=== PATIENT | female | born 1945 | race Caucasian/White ===

== ENCOUNTER 2018-09-24 07:20 | Emergency (ER) | payer MEDICARE, OTHER ==
[~2018-09-24] VITALS: Ht 162.6 cm; Wt 84.8 kg
[2018-09-24] MEDS ORDERED: LISI5 PO (07:37)
[2018-09-24] MEDS ORDERED: OMEPRAZOLE MAGN20 MG PO (07:38)
[2018-09-24] MEDS ORDERED: LEVSOD100 PO (07:38)
[2018-09-24 08:34] LABS: BASOPHILS ABSOLUTE AUTO 0.02 K/mm3 (0.00-0.23); BASOPHILS PERCENT AUTO 0 % (0-2); EOSINOPHILS ABSOLUTE AUTO 0.05 K/mm3 (0.00-0.68); EOSINOPHILS PERCENT AUTO 1 % (0-6); Hematocrit 38.7 % (33.0-51.0); Hemoglobin 12.4 g/dL (11.5-16.0); IMMATURE GRAN ABSOLUTE AUTO 0.03 K/mm3 (0.00-0.10); IMMATURE GRAN PERCENT AUTO 0 % (0-1); LYMPHOCYTES ABSOLUTE AUTO 1.57 K/mm3 (0.84-5.20); LYMPHOCYTES PERCENT AUTO 16 % (21-46); MONOCYTES ABSOLUTE AUTO 0.77 K/mm3 (0.16-1.47); MONOCYTES PERCENT AUTO 8 % (4-13); Mean Corpuscular HGB 29.7 pg (26.0-34.0); Mean Corpuscular Volume 93 fL (80-100); Mean Platelet Volume 10.3 fL (9.1-12.4); NEUTROPHILS ABSOLUTE AUTO 7.69 K/mm3 (1.96-9.15); NEUTROPHILS PERCENT AUTO 76 % (41-73); Platelet Count 206 K/mm3 (150-400); RDW Coefficient Variation 12.7 % (11.7-14.2); RDW Standard Deviation 43.8 fL (35.1-46.3); Red Blood Cell Count 4.17 M/mm3 (3.80-5.20); White Blood Cell Count 10.13 K/mm3 (4.00-11.30)
[2018-09-24 08:52] LABS: Alanine Aminotransfer (ALT/SGP 26 U/L (12-78); Albumin, Blood 3.6 g/dL (3.4-5.0); Alk Phos 122 U/L (50-136); Anion Gap 5 mmol/L (6-16); Aspartate Aminotrans (AST/SGOT 15 U/L (12-37); Bilirubin, Total 0.6 mg/dL (0.1-1.0); Blood Urea Nitrogen 13 mg/dL (8-24); Bun/Creatinine Ratio 17.1 (12.0-20.0); CO2, Blood 27 mmol/L (21-32); Calcium, Blood 8.6 mg/dL (8.5-10.1); Chloride, Blood 108 mmol/L (98-108); Creatinine, Blood 0.76 mg/dL (0.40-1.00); Globulin, Blood 3.6 g/dL (2.2-4.0); Glomerular Filtration Rate >60 (60-); Glucose, Blood 101 mg/dL (70-99); Potassium, Blood 3.9 mmol/L (3.5-5.5); Sodium, Blood 140 mmol/L (136-145); Total Protein, Blood 7.2 g/dL (6.4-8.2)
[2018-09-24 11:37] LABS: Source, Urine Clean Catch
[2018-09-24 11:54] LABS: Bilirubin, Urine Neg (Neg); Blood, Urine Neg (Neg); Glucose Qualitative, Urine Neg (Neg); Ketones, Urine Neg (Neg); Leukocyte Esterase, Urine Neg (Neg); Nitrite, Urine Neg (Neg); Protein, Urine 1+ (Neg); Specific Gravity, Urine 1.005 (1.003-1.022); Urobilinogen, Urine NORM (Normal)
[2018-09-24 11:59] LABS: Appearance, Urine Clear (Clear); Color, Urine Yellow (P-Yellow)
== END 2018-09-24 12:43 | disposition home or self-care (01) ==
LOC: ER 07:20
PROVIDERS: Physician Assistant
DX: K57.32 Diverticulitis of large intestine without perforation or abscess without bleeding (principal); Z90.710 Acquired absence of both cervix and uterus; Z90.49 Acquired absence of other specified parts of digestive tract; Z79.899 Other long term (current) drug therapy
CPT/HCPCS: 36415; 74177; 80053; 83690; 85025; 96361; 96365; 96375; 99284-25; J1170; J2405; J2543; J2550; J7030; Q9967

== ENCOUNTER 2019-03-27 15:52 | Observation (INO) | payer MEDICARE, OTHER ==
[~2019-03-27] VITALS: Ht 172.7 cm; Wt 70.3 kg
[~2019-03-27 15:52] MED LIST: LEVSOD100 PO; OMEPRAZOLE MAGN20 MG PO; Prinivil10 MG PO
[2019-03-27 16:58] LABS: BASOPHILS ABSOLUTE AUTO 0.03 K/mm3 (0.00-0.23); BASOPHILS PERCENT AUTO 0 % (0-2); EOSINOPHILS ABSOLUTE AUTO 0.02 K/mm3 (0.00-0.68); EOSINOPHILS PERCENT AUTO 0 % (0-6); Hematocrit 38.6 % (33.0-51.0); Hemoglobin 12.2 g/dL (11.5-16.0); IMMATURE GRAN PERCENT AUTO 1 % (0-1); LYMPHOCYTES PERCENT AUTO 11 % (21-46); MONOCYTES ABSOLUTE AUTO 0.67 K/mm3 (0.16-1.47); MONOCYTES PERCENT AUTO 5 % (4-13); Mean Corpuscular HGB 29.1 pg (26.0-34.0); Mean Corpuscular HGB Conc 31.6 g/dL (31.5-36.5); Mean Corpuscular Volume 92 fL (80-100); Mean Platelet Volume 10.7 fL (9.1-12.4); NEUTROPHILS ABSOLUTE AUTO 11.11 K/mm3 (1.96-9.15); NEUTROPHILS PERCENT AUTO 83 % (41-73); Platelet Count 207 K/mm3 (150-400); RDW Coefficient Variation 13.3 % (11.7-14.2); Red Blood Cell Count 4.19 M/mm3 (3.80-5.20); White Blood Cell Count 13.33 K/mm3 (4.00-11.30)
[2019-03-27 17:17] LABS: Albumin/Globulin Ratio 1.3 (0.8-1.8); Bilirubin, Total 0.5 mg/dL (0.1-1.0); Bun/Creatinine Ratio 21.6 (12.0-20.0); Calcium, Blood 8.9 mg/dL (8.5-10.1); Creatinine, Blood 1.02 mg/dL (0.40-1.00); Potassium, Blood 4.1 mmol/L (3.5-5.5)
[2019-03-27 17:22] LABS: International Normalized Ratio 0.95; Prothrombin Time Results 10.1 Sec (9.7-11.5)
--- NOTE | 2019-03-28 07:26 | NUR ---
SUMMARY PT REMAINS A&O X4, RESPIRATIONS REMAIN SHALLOW & GAURDED. I/S EDUCATION PROVIDED, PT DEMONSTRATED USE. SHE IS VERY PAINFUL WITH USE AND IS HESITANT. O2 SATURATION REMAINS ABOVE 95% ON ROOM AIR. PT TO XRAY THIS AM. PAIN MEDICATED PRN PER EMAR. PT ENCOURAGED TO DISCUSS PAIN COVERAGE WITH THIS AM. REPORT GIVEN TO DAY RN. CALL LIGHT IN REACH
--- NOTE | 2019-03-28 16:39 | NUR ---
PT BACK FROM CT GUIDED PIGTAIL CHEST TUBE PLACEMENT, TOLERATED WELL, DENIES ANY SHORTNESS OF BREATH, C/O PAIN ON RIBS, L SHOULDER MEDICATED W/ 1 NORCO AND ZOFRAN FOR NAUSEA, PIGTAIL DRAIN INTACT, CONT. TO MONITOR FOR ANY CHANGES.
--- NOTE | 2019-03-28 18:44 | NUR ---
SUMMARY REPORTS PAIN IS "OK" AT THIS TIME, DENIES ANY SOB, OOB TO CHAIR FOR MEALS, STANDBY ASSIST TO GET OOB, TOLERATING FAIRLY WELL, NO ACUTE CHANGES THIS SHIFT.
--- NOTE | 2019-03-29 08:34 | NUR ---
CONT. TO HAVE NAUSEA, ZOFRAN GIVEN, DENIES ANY SOB OR COUGH, REPORTS PAIN IS TOLERABLE BUT DOES NOT WANT TO TAKE ANY PAIN MEDS RIGHT NO DUE TO NAUSEA, REFUSED BREAKFAST, ASSISTED TO THE BATHROOM THEN CHAIR, CONT. TO MONITOR FOR ANY CHANGES.
--- NOTE | 2019-03-29 12:25 | NUR ---
RATES PAIN AT 4/10 AT THIS TIME AFTER TORADOL GIVEN, STATES PAIN IS TOLERABLE AT THIS TIME, ABLE TO AMBULATE INDEPENDENTLY TO THE BATHROOM C/O NAUSEA, ZOFRAN GIVEN, DR. FERNANDEZ HERE TO SEE PT, CONT. TO MONITOR.
--- NOTE | 2019-03-29 16:30 | NUR ---
PT SITTING ON CHAIR, DENIES ANY NAUSEA, DENIES ANY NEED FOR PAIN MEDS AT THIS TIME, PT REPORTS FEELING MUCH BETTER, DENIES ANY SOB, USING IS INSTRUCTED.
--- NOTE | 2019-03-29 18:11 | NUR ---
SUMMARY PT HAD NAUSEA THIS AM, STATES NAUSEA WAS RELATED TO TAKING NORCO, ZOFRAN GIVEN FOR NAUSEA, TORADOL GIVEN FOR PAIN, PT SINCE HAS DENIED ANY NAUSEA, REPORTS PAIN IS TOLERABLE AT THIS TIME, HAS TRAMADOL ORDERED BUT PT HAS DENIED NEED FOR IT, ABLE TO AMBULATE INDEPENDENTLY, DENIES ANY SOB, PIGTAIL CHEST TUBE INTACT, USING IS, NO OTHER CHANGES THIS SHIFT.
--- NOTE | 2019-03-30 07:14 | NUR ---
SUMAMRY PAIN CONTROL IMPROVED WITH TRAMADOL AND TORADOL. DENIES NAUSEA TONIGHT.
--- NOTE | 2019-03-30 08:29 | NUR ---
heimlich valve removed by dr webster. ace orellana
--- NOTE | 2019-03-30 10:27 | NUR ---
PATIENT REPORTS SLIGHT NAUSEA AFTER SITTING IN CHAIR, RETURNED TO BED. WILL CALL IF NAUSEA PERSISTWS
[2019-03-30] MEDS ORDERED: TRAM50 PO (13:07)
[2019-03-30] MEDS ORDERED: ACET500 PO (15:10)
[2019-03-30] MEDS ORDERED: Colace100 MG PO (15:10)
[2019-03-30] MEDS ORDERED: MIRALAX17 GM PO (15:11)
--- NOTE | 2019-03-30 15:30 | NUR ---
discharge discharge instructions reviewed with patient and questions answered. patient reports pain is currently 2-3/10. discharged accompanied by daughter and 2 grandsons
== END 2019-03-30 15:34 | disposition home or self-care (01) ==
LOC: ER 15:52 → SURS 15:53
PROVIDERS: Physician Assistant; ADMIT Surgery
DX: S27.0XXA Traumatic pneumothorax, initial encounter (principal); S22.42XA Multiple fractures of ribs, left side, initial encounter for closed fracture; S42.035A Nondisplaced fracture of lateral end of left clavicle, initial encounter for closed fracture; I10 Essential (primary) hypertension; E03.9 Hypothyroidism, unspecified; Z79.899 Other long term (current) drug therapy; V80.010A Animal-rider injured by fall from or being thrown from horse in noncollision accident, initial encounter
CPT/HCPCS: 32557; 36415; 70450; 71045; 71046; 71260; 72125; 73030; 74177; 80053; 85025; 85610; 86850; 86900; 86901; 96374-59; 96375; 96375-59; 96376; 99285-25; A9270-GY; G0378; J1885; J2270; J2405; Q9967

== ENCOUNTER → 2023-05-06 | Outpatient (CLI) | payer MEDICARE, OTHER ==
[~2023-05-06] MED LIST changes: +ACET500 PO; +Colace100 MG PO; +MIRALAX17 GM PO; +TRAM50 PO
[2023-05-06 16:19] LABS: Source, Urine Clean Catch
[2023-05-06 16:26] LABS: Bilirubin, Urine Neg (Neg); Blood, Urine Neg (Neg); Glucose Qualitative, Urine Neg (Neg); Ketones, Urine Neg (Neg); Leukocyte Esterase, Urine 1+ (Neg); Nitrite, Urine Neg (Neg); Protein, Urine Neg (Neg); Urobilinogen, Urine NORM (Normal)
[2023-05-06 16:39] LABS: Appearance, Urine Clear (Clear); Color, Urine Pale Yellow (P-Yellow)
[2023-05-06 16:43] LABS: Bacteria Many /hpf; Red Blood Cells, Urine Not Seen /hpf (0-2); Squamous Epithelial Cells Mod /hpf (Few)
== END ==
LOC: LAB 12:14 → LAB SHORT 12:14
PROVIDERS: Physician Assistant
DX: R35.0 Frequency of micturition (principal)
CPT/HCPCS: 81001; 87077; 87086; 87186

== ENCOUNTER 2024-04-24 00:27 | Emergency (ER) | payer MEDICARE, OTHER ==
[~2024-04-24] VITALS: Ht 162.6 cm; Wt 80.7 kg
[2024-04-24] MEDS ORDERED: Ondansetron HCl 2 MG / ML 2ML Vial IV ONE (01:05)
[2024-04-24 01:14] LABS: BASOPHILS ABSOLUTE AUTO 0.02 K/mm3 (0.00-0.23); BASOPHILS PERCENT AUTO 0 % (0-2); EOSINOPHILS ABSOLUTE AUTO 0.03 K/mm3 (0.00-0.68); EOSINOPHILS PERCENT AUTO 0 % (0-6); Hematocrit 39.3 % (33.0-51.0); Hemoglobin 12.8 g/dL (11.5-16.0); IMMATURE GRAN ABSOLUTE AUTO 0.08 K/mm3 (0.00-0.10); IMMATURE GRAN PERCENT AUTO 1 % (0-1); LYMPHOCYTES ABSOLUTE AUTO 1.13 K/mm3 (0.84-5.20); LYMPHOCYTES PERCENT AUTO 7 % (21-46); MONOCYTES ABSOLUTE AUTO 0.72 K/mm3 (0.16-1.47); MONOCYTES PERCENT AUTO 5 % (4-13); Mean Corpuscular HGB 29.6 pg (26.0-34.0); Mean Corpuscular HGB Conc 32.6 g/dL (31.5-36.5); Mean Corpuscular Volume 91 fL (80-100); Mean Platelet Volume 10.1 fL (9.1-12.4); NEUTROPHILS ABSOLUTE AUTO 13.55 K/mm3 (1.96-9.15); NEUTROPHILS PERCENT AUTO 87 % (41-73); Platelet Count 329 K/mm3 (150-400); RDW Coefficient Variation 12.9 % (11.7-14.2); RDW Standard Deviation 42.6 fL (35.1-46.3); Red Blood Cell Count 4.32 M/mm3 (3.80-5.20); White Blood Cell Count 15.53 K/mm3 (4.00-11.30)
[2024-04-24 01:32] LABS: Albumin, Blood 4.1 g/dL (3.4-5.0); Albumin/Globulin Ratio 1.1 (0.8-1.8); Bilirubin, Total 0.6 mg/dL (0.1-1.0); Bun/Creatinine Ratio 31.9 (12.0-20.0); Calcium, Blood 9.5 mg/dL (8.5-10.1); Creatinine, Blood 0.85 mg/dL (0.40-1.00); Globulin, Blood 3.9 g/dL (2.2-4.0); Potassium, Blood 3.8 mmol/L (3.5-5.5)
[2024-04-24] MEDS ORDERED: LOSA50 PO (02:08)
[2024-04-24] MEDS ORDERED: NS 1,000 ML IV SCH (02:25)
[2024-04-24] MEDS ORDERED: Ketorolac Tromethamine 30mg Vial IV ONE (02:40)
[2024-04-24] MEDS ORDERED: Acetaminophen 500 MG Tab PO ONE (02:40)
[2024-04-24] MEDS ORDERED: ONDA4ODT MM (03:30)
[2024-04-24 03:31] VITALS: BP 136/77
== END 2024-04-24 03:27 | disposition home or self-care (01) ==
LOC: ER 00:27
PROVIDERS: Emergency Medicine
DX: R11.2 Nausea with vomiting, unspecified (principal); E86.0 Dehydration; D72.829 Elevated white blood cell count, unspecified; R51.9 Headache, unspecified; Z79.890 Hormone replacement therapy; Z79.899 Other long term (current) drug therapy; Z88.5 Allergy status to narcotic agent
CPT/HCPCS: 80053; 85025; 96361; 96374; 96375; 99284-25; A9270; J1885; J2405; J7030

== ENCOUNTER 2025-02-07 15:16 | Emergency (ER) | payer MEDICARE, OTHER ==
[~2025-02-07] VITALS: Ht 162.6 cm; Wt 80.7 kg
[2025-02-07 22:08] VITALS: BP 142/79
== END 2025-02-07 22:10 | disposition home or self-care (01) ==
LOC: ER 15:16
DX: R00.2 Palpitations (principal); R55 Syncope and collapse; I10 Essential (primary) hypertension; Z79.899 Other long term (current) drug therapy; Z88.5 Allergy status to narcotic agent